=== PATIENT | female | born 1955 | race Caucasian/White ===

== ENCOUNTER 2019-10-22 07:11 | Emergency (ER) | payer MEDICAID ==
[~2019-10-22] VITALS: Ht 157 cm; Wt 87.0 kg
[~2019-10-22 07:11] MED LIST: ACET-2267 PO; CALC-64 PO; CHOL100048 PO; DOCU-143 PO; DULO60CA59 PO; HYDR-4226 PO; IBUP-2185 PO; MULT-1136 PO; TRAZ-227 PO
[2019-10-22] MEDS ORDERED: LACTATED RINGERS 1,000 ML IV ONE (07:20)
--- NOTE | 2019-10-22 07:28 | ED Abdominal Pain ---
General Stated Complaint: SURGICAL WOUND BLEEDING Source of Information: Patient Exam Limitations: No Limitations History of Present Illness Date Seen by Provider: Oct 22, 2019 Time Seen by Provider: 07:08 Initial Comments Patient presents ER by private conveyance that this morning the middle of her ventral surgical wound started leaking a dark brown sanguinous solution. She has had a little bit of erythema and induration along the bottom half of her ventral wound and was started on Keflex by Dr. Grande Sunday, 2 days ago. She's not having any fevers chills nausea vomiting or diarrhea. No dysuria. She had a gastric bypass by Dr. Grande in 2017 and on the third, 13 days ago she had a ventral hernia repair closed with tavares. She denies a history of diabetes or blood thinners. She does not have a history of anemia. No chest pain shortness of air or lightheadedness. Allergies and Home Medications Allergies Coded Allergies: No Known Drug Allergies (Unverified , 10/09/19) Home Medications Calcium/Magnesium/Zinc 1 Each Tablet, 1 EACH PO HS, (Reported) Cholecalciferol (Vitamin D3) 25 Mcg Capsule, 25 MCG PO HS, (Reported) Docusate Sodium 100 Mg Capsule, 100 MG PO BID Prescribed by: ANNA MELGOZA on 10/12/19 09 Duloxetine HCl 60 Mg Capsule.dr, 60 MG PO HS, (Reported) Hydrocodone/Acetaminophen 1 Each Tablet, 1 TAB PO Q4-6HR Prescribed by: ANNA MELGOZA on 10/12/19 09 Multivitamin 1 Each Tablet, 1 EACH PO HS, (Reported) Trazodone HCl 100 Mg Tablet, 100 MG PO HS, (Reported) Patient Home Medication List Home Medication List Reviewed: Yes Review of Systems Review of Systems Constitutional: No chills, No diaphoresis EENTM: No Blurred Vision, No Double Vision Respiratory: Denies Cough, Denies Shortness of Air Cardiovascular: Denies Chest Pain, Denies Edema Gastrointestinal: Denies Abdomen Distended, Denies Abdominal Pain, Denies Constipated, Denies Diarrhea, Denies Nausea Genitourinary: Denies Burning, Denies Discharge Musculoskeletal: No back pain, No joint pain All Other Systems Reviewed Negative Unless Noted: Yes Past Pgbuxsf-Oblczd-Fdgmjy Hx Patient Social History Alcohol Use: Denies Use Recreational Drug Use: No Smoking Status: Never a Smoker Recent Foreign Travel: No Contact w/Someone Who Travel: No Recent Hopitalizations: No Immunizations Up To Date Tetanus Booster (TDap): Unknown PED Vaccines UTD: Yes Seasonal Allergies Seasonal Allergies: No Past Medical History Surgeries: Yes (GASTRIC BYPASS) Abdominal Respiratory: No Currently Using CPAP: No Currently Using BIPAP: No Cardiac: No Neurological: No Genitourinary: No Gastrointestinal: Yes Musculoskeletal: Yes Endocrine: No HEENT: No Cancer: No Psychosocial: Yes Depression Integumentary: No Family Medical History Heart Disease Physical Exam Vital Signs Vital Signs - First Documented 10/22/19 07:50 Temp 36.6 Pulse 64 Resp 16 B/P (MAP) 135/68 (90) Pulse Ox 97 O2 Delivery Room Air Capillary Refill : Height/Weight/BMI Height: '" Weight: lbs. oz. kg; 37.00 BMI Method: General Appearance: WD/WN, mild distress HEENT: PERRL/EOMI, pharynx normal Neck: full range of motion, supple, normal inspection Respiratory: lungs clear, normal breath sounds, no respiratory distress, no accessory muscle use Cardiovascular: normal peripheral pulses, regular rate, rhythm Peripheral Pulses: 2+ Radial Pulses (R), 2+ Radial Pulses (L) Gastrointestinal: normal bowel sounds, soft, tenderness (mild tenderness associated with surgical wound that does not have complete skin closure. There is some dark non-malodorous sanguinous thin secretions coming out of the middle of the incision that is held together by tavares. The bottom half of the surgical wound has some mild induration and erythema associated about 2 cm on either side of the incision line. No purulence. ) Extremities: normal range of motion, normal inspection, normal capillary refill Neurologic/Psychiatric: alert, normal mood/affect, oriented x 3 Skin: warm/dry Progress/Results/Core Measures Results/Orders Lab Results Laboratory Tests Test 10/22/19 07:18 Range/Units White Blood Count 4.9 4.3-11.0 10^3/uL Red Blood Count 4.55 4.35-5.85 10^6/uL Hemoglobin 12.9 11.5-16.0 G/DL Hematocrit 41 35-52 % Mean Corpuscular Volume 90 80-99 FL Mean Corpuscular Hemoglobin 28 25-34 PG Mean Corpuscular Hemoglobin Concent 32 32-36 G/DL Red Cell Distribution Width 12.9 10.0-14.5 % Platelet Count 287 130-400 10^3/uL Mean Platelet Volume 9.3 7.4-10.4 FL Neutrophils (%) (Auto) 63 42-75 % Lymphocytes (%) (Auto) 21 12-44 % Monocytes (%) (Auto) 9 0-12 % Eosinophils (%) (Auto) 6 0-10 % Basophils (%) (Auto) 1 0-10 % Neutrophils # (Auto) 3.1 1.8-7.8 X 10^3 Lymphocytes # (Auto) 1.1 1.0-4.0 X 10^3 Monocytes # (Auto) 0.5 0.0-1.0 X 10^3 Eosinophils # (Auto) 0.3 0.0-0.3 10^3/uL Basophils # (Auto) 0.0 0.0-0.1 10^3/uL Sodium Level 138 135-145 MMOL/L Potassium Level 3.5 L 3.6-5.0 MMOL/L Chloride Level 104 98-107 MMOL/L Carbon Dioxide Level 27 21-32 MMOL/L Anion Gap 7 5-14 MMOL/L Blood Urea Nitrogen 8 7-18 MG/DL Creatinine 0.69 0.60-1.30 MG/DL Estimat Glomerular Filtration Rate > 60 BUN/Creatinine Ratio 12 Glucose Level 114 H 70-105 MG/DL Calcium Level 8.7 8.5-10.1 MG/DL Corrected Calcium 9.2 8.5-10.1 MG/DL Total Bilirubin 0.4 0.1-1.0 MG/DL Aspartate Amino Transf (AST/SGOT) 17 5-34 U/L Alanine Aminotransferase (ALT/SGPT) 12 0-55 U/L Alkaline Phosphatase 113 40-136 U/L C-Reactive Protein High Sensitivity 0.68 H 0.00-0.50 MG/DL Total Protein 6.5 6.4-8.2 GM/DL Albumin 3.4 3.2-4.5 GM/DL My Orders Orders - COURT PUENTES Cbc With Automated Diff (10/22/19 07:20) Comprehensive Metabolic Panel (10/22/19 07:20) Hs C Reactive Protein (10/22/19 07:20) Ed Iv/Invasive Line Start (10/22/19 07:20) Lactated Ringers (Lr 1000 Ml Iv Solution (10/22/19 07:20) Vital Signs/I&O 10/22/19 07:50 Temp 36.6 Pulse 64 Resp 16 B/P (MAP) 135/68 (90) Pulse Ox 97 O2 Delivery Room Air Progress Progress Note : Time: 07:31 Progress Note Clean the area off and put an abdominal pad. Suspect she has a seroma that is leaking. The fact that her skin has not sealed over yet is disconcerting and probably due to the malnutrition associated with her gastric bypass. We do not have ultrasound available yet so we'll discuss CT to better characterize her wound and any associated fluid collection. Abscess versus seroma. We'll get some labs to help us decide if there is any signs of infection. We'll clean the skin off with chlorhexidine and attempt to get a wound culture if we can pass a sterile cotton Swab through the opening without making it larger. Consults : Consulting Physician: JEREL GRANDE DO Consults Notes Discussed the case with the surgeon and if she has a normal white count he does not recommend any imaging. He does not follow-up for tomorrow in the clinic. The patient states she already has an appointment with him tomorrow afternoon. Labs are unremarkable. Departure Impression Primary Impression: Abdominal wall seroma Qualified Codes: S30.1XXA - Contusion of abdominal wall, initial encounter Disposition: 01 HOME, SELF-CARE Condition: Stable Departure-Patient Inst. Decision time for Depature: 08:21 Referrals: JEREL GRANDE DO Patient Instructions: How to Prevent Surgical Site Infections Add. Discharge Instructions: Keep wound clean with regular soap and water only. Change the dressings as often as it becomes soiled or at least daily. The drainage will slow down over the next day or so. Keep your follow-up appointment with Dr. Grande tomorrow. Return to the ER if you develop fever, intractable vomiting or other worrisome symptoms. COURT PUENTES Oct 22, 2019 07:28
[2019-10-22 07:29] LABS: BASOPHILS % (AUTO) 1 % (0-10); EOSINOPHILS # (AUTO) 0.3 10^3/uL (0.0-0.3); EOSINOPHILS % (AUTO) 6 % (0-10); HEMATOCRIT 41 % (35-52); HEMOGLOBIN 12.9 G/DL (11.5-16.0); LYMPHOCYTES # (AUTO) 1.1 X 10^3 (1.0-4.0); LYMPHOCYTES % (AUTO) 21 % (12-44); MEAN CORPUSCULAR HEMOGLOBIN 28 PG (25-34); MEAN CORPUSCULAR HGB CONC 32 G/DL (32-36); MEAN CORPUSCULAR VOLUME 90 FL (80-99); MEAN PLATELET VOLUME 9.3 FL (7.4-10.4); MONOCYTES # (AUTO) 0.5 X 10^3 (0.0-1.0); MONOCYTES % (AUTO) 9 % (0-12); NEUTROPHILS # (AUTO) 3.1 X 10^3 (1.8-7.8); NEUTROPHILS % (AUTO) 63 % (42-75); PLATELET COUNT 287 10^3/uL (130-400); WHITE BLOOD COUNT 4.9 10^3/uL (4.3-11.0)
[2019-10-22 07:33] LABS: ALBUMIN 3.4 GM/DL (3.2-4.5); CHLORIDE 104 MMOL/L (98-107); POTASSIUM 3.5 MMOL/L (3.6-5.0); SODIUM 138 MMOL/L (135-145)
[2019-10-22 07:34] LABS: CALCIUM 8.7 MG/DL (8.5-10.1)
[2019-10-22 07:36] LABS: GLUCOSE 114 MG/DL (70-105); TOTAL PROTEIN 6.5 GM/DL (6.4-8.2)
[2019-10-22 07:37] LABS: CARBON DIOXIDE 27 MMOL/L (21-32)
[2019-10-22 07:38] LABS: BILIRUBIN,TOTAL 0.4 MG/DL (0.1-1.0)
[2019-10-22 07:39] LABS: ALKALINE PHOSPHATASE 113 U/L (40-136); CREATININE SERUM 0.69 MG/DL (0.60-1.30); GFR ESTIMATED > 60
[2019-10-22 07:40] LABS: BUN/CREATININE RATIO 12
[2019-10-22 07:42] LABS: ALANINE AMINOTRANSFERASE 12 U/L (0-55)
[2019-10-22] MEDS ORDERED: NS 100 ML (IVPB) BAG IV ONE (07:45)
[2019-10-22] MEDS ORDERED: IOHEXOL 350 MG/ML 100 ML (OMNIPAQUE 350) VIAL IV ONE (07:45)
[2019-10-22] MEDS ORDERED: HOLD METFORMIN - RECEIVED CONTRAST 20 ML VIAL IV SCH (07:45)
[2019-10-22 08:30] VITALS: BP 109/78
== END 2019-10-22 08:30 | disposition home or self-care (01) ==
LOC: EDUNIT# 07:11 → ER 07:13
DX: L76.34 Postprocedural seroma of skin and subcutaneous tissue following other procedure (principal); F32.9 Major depressive disorder, single episode, unspecified; Z98.84 Bariatric surgery status; Z82.49 Family history of ischemic heart disease and other diseases of the circulatory system
CPT/HCPCS: 36415; 80053; 85025; 86141; 87070; 87205